=== PATIENT | male | born 1945 | race Caucasian/White ===

== ENCOUNTER → 2018-08-04 10:00 | Outpatient (CLI) | payer MEDICARE, SELFPAY ==
--- NOTE | 2018-08-04 10:08 | EKG12_ITS ---
Test Reason : PRE OP Blood Pressure : / mmHG Vent. Rate : 053 BPM Atrial Rate : 053 BPM P-R Int : 164 ms QRS Dur : 100 ms QT Int : 448 ms P-R-T Axes : 004 029 021 degrees QTc Int : 420 ms Sinus bradycardia Inferior infarct , age undetermined T wave abnormality, consider lateral ischemia Abnormal ECG Confirmed by YAYA YAO, JOHN ([id number]), editor city PATRICIA ADKINS ([id number]) on 08/05/2018 1:50:47 PM Referred By: Jose Charlton Confirmed By:JOHN JAVIER MD
[2018-08-04 10:23] LABS: Hematocrit 44.8 % (40-54); Hemoglobin 15.4 g/dl (13.0-16.5); Mean Corp Hgb Conc 34.4 g/gl (32-36); Mean Corpuscular Hgb 31.3 pg (27.0-32.0); Mean Corpuscular Volume 91.1 fL (80-94); Mean Platelet Vol. 9.5 fl (6.2-12.0); Platelet Count 273 K/mm3 (150-450); RBC Distribution Width CV 13.1 % (11.6-14.6); RBC Distribution Width SD 43.1 fl (35.1-43.9); Red Blood Count 4.92 M/mm3 (4.6-6.2); White Blood Count 6.3 K/mm3 (4.4-11.0)
[2018-08-04 10:26] LABS: Scan Indicated on CBC? Y/N NO
[2018-08-04 11:02] VITALS: BP 128/71; PULSE 61; RESP 16; TEMP 36.5; O2SAT 96; BMI 34.6
[2018-08-04 11:12] LABS: Anion Gap 5 (5-15); BUN 13 mg/dL (7-18); BUN/Creat Ratio 11.6 RATIO (10-20); Chloride 106 mmol/L (98-107); Creatinine, Serum 1.12 mg/dL (0.70-1.30); EST Glomerular Filtration Rate 69 mL/min (>60); Est Glom Filt Rate - Afr Amer 83 mL/min (>60); Estimated Creatinine Clearance 62.46 ml/min; Glucose 204 mg/dL (74-106); Sodium Level 137 mmol/L (136-145)
[2018-08-04 11:44] LABS: Hemoglobin A1c 7.4 % (4.2-6.3)
== END ==
LOC: SDC 11:14 → PAT 09-08 15:32
PROVIDERS: Family Provider Nurse Practitioner Family; PCP Nurse Practitioner Family; Referring Provider Otolaryngology; Visit Provider Otolaryngology
DX: Z01.818 Encounter for other preprocedural examination (principal); E11.9 Type 2 diabetes mellitus without complications
CPT/HCPCS: 36415; 80048; 83036; 85027; 93005

== ENCOUNTER → 2018-12-25 13:43 | Outpatient (CLI) | payer MEDICARE, SELFPAY ==
[2018-12-15 13:26] VITALS: BMI 34.4
--- NOTE | 2018-12-25 13:45 | ECHOD_ITS ---
Reason For Study: ARRHYTHMIA Procedure This was a 2D Doppler, Color Flow transthoracic echocardiogram. The study was technically difficult. Exam performed in department. Left Ventricle Normal size and thickness. The estimated ejection fraction is 55 %. Stage 1 diastolic dysfunction. Lateral-Basal: Mildly hypokinetic. Mid-Lateral : Mildly hypokinetic. Infero-Basal: Mildly hypokinetic. Right Ventricle Normal size and thickness. Normal systolic function. Atria The left atrium is moderately enlarged. Normal right atrium. Normal atrial septum. Mitral Valve Mild diffuse mitral valve thickening. Mild (1+) posteriorly directed mitral valve insufficiency. Tricuspid Valve Normal tricuspid valve. Trivial tricuspid valve insufficiency. Right ventricular systolic pressure estimated to be 37 mmHg. Mild pulmonary hypertension. Aortic Valve Normal aortic valve. Trisinus/trileaflet aortic valve. Pulmonic Valve Normal pulmonic valve. Trivial pulmonic valve insufficiency. Great Vessels Normal aortic root. Normal arch. Normal inferior vena cava. Inferior vena cava collapse with sniff. Pericardium/Pleural No pericardial effusion. MMode/2D Measurements & Calculations LVIDd: 4.6 cm IVSd: 1.2 cm Ao root diam: 3.1 cm LVIDs: 3.2 cm LVPWd: 1.2 cm RVDd: 3.4 cm FS: 30.3 % LAV(MOD-bp): 87.4 ml LA A4 area: 25.6 cm2 LA dimension(2D): 4.0 cm LAV(MOD-bp) Indexed: 39.8 ml/m2 LAV(MOD-sp2): 85.9 ml LAV(MOD-sp4): 83.5 ml RA A4 area: 19.8 cm2 Time Measurements MV dec time: 0.24 sec Doppler Measurements & Calculations MV E max anant: 86.5 cm/sec Lat Peak E' Anant: 9.6 cm/sec Med Peak E' Anant: 5.9 cm/sec MV A max anant: 98.4 cm/sec E/E' lat: 9.1 E/E' med: 14.6 MV E/A: 0.88 Ao V2 max: 115.4 cm/sec LV V1 max: 103.0 cm/sec PA V2 max: 103.1 cm/sec Ao max P.3 mmHg LV V1 max P.2 mmHg TR max anant: 258.1 cm/sec TR max P.9 mmHg Interpretation Summary The estimated ejection fraction is 55 %. Stage 1 diastolic dysfunction. Lateral-Basal: Mildly hypokinetic Mid-Lateral : Mildly hypokinetic Infero-Basal: Mildly hypokinetic The left atrium is moderately enlarged. Mild (1+) posteriorly directed mitral valve insufficiency. Right ventricular systolic pressure estimated to be 37 mmHg. Trivial tricuspid valve insufficiency. There is no comparison study available. Ordering Physician: Ap Schaffer Referring Physician: Dakota SAFETY LEADER-C, Soila Performed By: Nery Werner, GOMEZ, RVT
== END ==
PROVIDERS: Family Provider Nurse Practitioner Family; PCP Nurse Practitioner Family; Referring Provider Internal Medicine Cardiovascular Disease; Visit Provider Internal Medicine Cardiovascular Disease
DX: I51.9 Heart disease, unspecified (principal); I49.9 Cardiac arrhythmia, unspecified
CPT/HCPCS: 93306

== ENCOUNTER → 2019-08-06 15:34 | Outpatient (CLI) | payer MEDICARE, SELFPAY ==
[2019-08-06 15:18] VITALS: BMI 34.4
[2019-08-06 16:14] LABS: Absolute Lymphocyte Count 2.27 X10^3/uL (0.83-4.51); Absolute Neutrophil Count 3.6 X10^3/uL (2.0-7.7); Basophil# 0.08 X10^3/uL; Basophil% 1.1 % (0-1); Eosinophil# 0.51 X10^3/uL; Eosinophils% 7.1 % (0-5); Hematocrit 43.4 % (40-54); Hemoglobin 14.8 g/dL (13.0-16.5); Lymphocyte # 2.27 X10^3/ul (4.0); Lymphocyte % 31.5 % (19-41); Mean Corp Hgb Conc 34.1 g/dL (32-36); Mean Corpuscular Hgb 31.6 pg (27.0-32.0); Mean Corpuscular Volume 92.7 fL (80-94); Mean Platelet Vol. 9.6 fl (6.2-12.0); Monocyte% 9.7 % (0-10); NRBC Flagged by Analyzer 0 % (0-5); Neutrophil # 3.63 X10^3/uL (2.7-7.7); Neutrophil % 50.3 % (47-70); Platelet Count 293 K/mm3 (150-450); RBC Distribution Width CV 12.7 % (11.6-14.6); RBC Distribution Width SD 42.7 fl (35.1-43.9); Red Blood Count 4.68 M/mm3 (4.6-6.2); White Blood Count 7.2 K/mm3 (4.4-11.0)
[2019-08-06 17:10] LABS: Anion Gap 6 (5-15); BUN 14 mg/dL (7-18); BUN/Creat Ratio 11.9 RATIO (10-20); Calcium,Total 9.8 mg/dL (8.5-10.1); Chloride 99 mmol/L (98-107); Creatinine, Serum 1.18 mg/dL (0.70-1.30); EST Glomerular Filtration Rate 64 mL/min (>60); Est Glom Filt Rate - Afr Amer 78 mL/min (>60); Glucose 258 mg/dL (74-106); Magnesium 1.9 mg/dL (1.6-2.6); Potassium 4.2 mmol/L (3.5-5.1); Sodium Level 135 mmol/L (136-145)
== END ==
PROVIDERS: PCP Internal Medicine Infectious Disease; Referring Provider Physician Assistant Medical; Visit Provider Physician Assistant Medical
DX: I25.10 Atherosclerotic heart disease of native coronary artery without angina pectoris (principal); I49.3 Ventricular premature depolarization; E78.5 Hyperlipidemia, unspecified; I10 Essential (primary) hypertension
CPT/HCPCS: 36415; 80048; 83735; 84443; 85025

== ENCOUNTER → 2020-04-04 15:10 | Outpatient (CLI) | payer MEDICARE, SELFPAY ==
[2020-04-04 14:30] VITALS: BMI 33.0
[2020-04-04 15:55] LABS: Absolute Lymphocyte Count 2.09 X10^3/uL (0.83-4.51); Absolute Neutrophil Count 3.4 X10^3/uL (2.0-7.7); Basophil% 1.5 % (0-1); Eosinophil# 0.43 X10^3/uL; Eosinophils% 6.4 % (0-5); Hematocrit 43.9 % (40-54); Lymphocyte # 2.09 X10^3/ul (4.0); Lymphocyte % 31.1 % (19-41); Mean Corp Hgb Conc 34.2 g/dL (32-36); Mean Corpuscular Hgb 30.7 pg (27.0-32.0); Mean Corpuscular Volume 89.8 fL (80-94); Mean Platelet Vol. 9.5 fl (6.2-12.0); Monocyte# 0.67 X10^3/uL; NRBC Flagged by Analyzer 0 % (0-5); Neutrophil # 3.42 X10^3/uL (2.7-7.7); Neutrophil % 50.7 % (47-70); Platelet Count 318 K/mm3 (150-450); RBC Distribution Width CV 12.5 % (11.6-14.6); RBC Distribution Width SD 41.1 fl (35.1-43.9); Red Blood Count 4.89 M/mm3 (4.6-6.2); White Blood Count 6.7 K/mm3 (4.4-11.0)
[2020-04-04 16:57] LABS: ALB/GLOB Ratio 0.9 RATIO (0.9-2.4); AST(SGOT) 49 U/L (15-37); Alanine Aminotransfer ALT/SGPT 96 U/L (16-61); Albumin, Serum 3.8 g/dL (3.2-5.0); Alkaline Phosphatase 81 U/L (45-117); Anion Gap 8 (5-15); BUN 15 mg/dL (7-18); BUN/Creat Ratio 12.9 RATIO (10-20); Calcium,Total 9.6 mg/dL (8.5-10.1); Chloride 102 mmol/L (98-107); Cholesterol 172 mg/dL (200); Creatinine, Serum 1.16 mg/dL (0.70-1.30); EST Glomerular Filtration Rate 66 mL/min (>60); Est Glom Filt Rate - Afr Amer 79 mL/min (>60); Globulin 4.2 g/dL (2.2-4.2); Glucose 344 mg/dL (74-106); High Density Lipoprotein 27 mg/dL; Magnesium 1.7 mg/dL (1.6-2.6); Sodium Level 137 mmol/L (136-145); Thyroid Stim Hormone (TSH) 3.52 uIU/mL (0.358-3.74); Triglycerides 533 mg/dL
== END ==
PROVIDERS: PCP Internal Medicine Infectious Disease; Visit Provider Physician Assistant Medical
DX: I25.10 Atherosclerotic heart disease of native coronary artery without angina pectoris (principal); E78.5 Hyperlipidemia, unspecified; M62.838 Other muscle spasm; I51.9 Heart disease, unspecified
CPT/HCPCS: 36415; 80053; 80061; 83735; 84443; 85025

== ENCOUNTER → 2021-01-01 12:48 | Outpatient (CLI) | payer MEDICARE, SELFPAY ==
--- NOTE | 2021-01-01 12:59 | ECHOCS_ITS ---
Reason For Study: Murmur Procedure This was a 2D Doppler, Color Flow transthoracic echocardiogram. The study was technically difficult. Contrast injection was performed. Exam performed in department. Left Ventricle Normal LV size. Segmental dysfunction with preserved ejection fraction (see wall motion). The estimated ejection fraction is 55 %. Diastolic function is indeterminate. Lateral-Basal: Hypokinetic. Posterior-Basal: Hypokinetic. Infero-Basal: Hypokinetic. Basal inferoseptal: Hypokinetic. Right Ventricle Normal RV size. Normal systolic function. Atria The left atrium is mildly enlarged. Normal right atrium. No doppler evidence for ASD. Mitral Valve There is no mitral annular calcification. Normal mitral valve. Mild-Moderate (1-2+) eccentric mitral valve insufficiency. Tricuspid Valve Normal tricuspid valve. Trivial tricuspid valve insufficiency. Unable to estimate RV systolic pressure/pulmonary artery pressure due to technically difficult study. Aortic Valve The aortic valve is not well visualized. Pulmonic Valve The pulmonic valve is not well visualized. Trivial pulmonic valve insufficiency. Great Vessels Normal sized aortic root. Pericardium/Pleural No pericardial effusion. Medication Diluted definity 3ml given slow IV push to enhance endocardial definition. MMode/2D Measurements & Calculations LVIDd: 4.6 cm IVSd: 1.0 cm Ao root diam: 3.5 cm LVIDs: 3.0 cm LVPWd: 0.91 cm RVDd: 3.4 cm FS: 36.1 % LAV(MOD-bp): 82.0 ml LA A4 area: 23.1 cm2 LA dimension(2D): 4.4 cm LAV(MOD-bp) Indexed: 38.2 ml/m2 LAV(MOD-sp2): 80.5 ml LAV(MOD-sp4): 73.0 ml RA A4 area: 14.7 cm2 Doppler Measurements & Calculations MV E max anant: 74.8 cm/sec Lat Peak E' Anant: 9.3 cm/sec Med Peak E' Anant: 6.6 cm/sec MV A max anant: 85.1 cm/sec E/E' lat: 8.1 E/E' med: 11.4 MV E/A: 0.88 Ao V2 max: 126.0 cm/sec LV V1 max: 114.9 cm/sec PA V2 max: 85.7 cm/sec Ao max P.3 mmHg LV V1 max P.3 mmHg Ao V2 mean: 89.9 cm/sec Ao mean P.5 mmHg Ao V2 VTI: 23.4 cm ECHO/Echo Complete W/ Contrast Interpretation Summary The study was technically difficult. Contrast injection was performed. Segmental dysfunction with preserved ejection fraction (see wall motion). The estimated ejection fraction is 55 %. The left atrium is mildly enlarged. Mild-Moderate (1-2+) eccentric mitral valve insufficiency. Trivial tricuspid valve insufficiency. Trivial pulmonic valve insufficiency. Unable to estimate RV systolic pressure/pulmonary artery pressure due to techni brennon difficult study. Diastolic function is indeterminate. Ordering Physician: Arun Mendes Referring Physician: Marlon Byrd Performed By: Roof, Stephanie, RDCS, RVT
== END ==
PROVIDERS: PCP Internal Medicine Infectious Disease; Referring Provider Internal Medicine Cardiovascular Disease; Visit Provider Internal Medicine Cardiovascular Disease
DX: I25.10 Atherosclerotic heart disease of native coronary artery without angina pectoris (principal)
CPT/HCPCS: 93306; Q9957; A4216; C8929; J3490

== ENCOUNTER 2021-07-03 06:48 | Outpatient (CLI) | payer MEDICARE, SELFPAY ==
--- NOTE | 2021-07-03 08:49 | STRESSREP_ITS ---
Stress Test Report Date: Procedure: Exercise tolerance test/imaging study Indications: Dyspnea on exertion; CAD; PCI Consent: Per the patient Procedure: The patient exercised on a Tommy protocol for 4 minutes completing Stage I and 1 minute of Stage II achieving a peak heart rate of 126 bpm (86% predicted maximal heart rate) with a peak blood pressure 172/74 mmHg and a peak MET capacity of 7 METs. The baseline ECG demonstrated sinus bradycardia. The peak exercise ECG demonstrated somatic/motion artifact with no obvious ECG changes. There was an isolated PVC during exercise and a rare PVC during recovery. The functional capacity was considered average. There was no complaint of chest discomfort during exercise or recovery. The examination was discontinued secondary to dyspnea. Impression: 1. Technically adequate (percent predicted maximal heart rate greater than 85%) exercise tolerance test 2. Peak exercise ECG with somatic/motion artifact with no obvious ECG changes 3. There was an isolated PVC during exercise and a rare PVC during recovery 4. Nuclear images pending Myocardial perfusion imaging study: Technique: The patient was injected with 14.8 mCi of technetium 99m Cardiolite and subsequently rest SPECT Cardiolite nuclear imaging was obtained in the horizontal long, vertical long, and short axis views. The patient exercised on a Tommy protocol for 4 minutes completing Stage I and 1 minute of Stage II achieving a peak heart rate of 126 bpm (86% predicted maximal heart rate) with a peak blood pressure 172/74 mmHg and a peak MET capacity of 7 METs. The patient was injected with 45 point mCi of technetium 99m Cardiolite and subsequently stress SPECT Cardiolite nuclear imaging was obtained in the horizontal long, vertical long, and short axis views. A gated Cardiolite study at peak stress was obtained. Interpretation: Rest and stress SPECT Cardiolite nuclear imaging status post realignment, normal ization, and attenuation correction, demonstrates the appearance of diminished absence of myocardial perfusion/tracer uptake in the basal towards distal inferolateral segments at both rest and stress and following stress the appearance of diminished myocardial perfusion/tracer uptake in the inferior apical/lateral apical segments. There is diminished end-systolic thickening and brightening in the aforementioned area. The gated Cardiolite study demonstrates diminished myocardial thickening and inward wall motion in the aforementioned areas. The reported LVEF is 49%. Impression: 1. Rest and stress SPECT Cardiolite nuclear imaging demonstrate myocardial perfusion changes appearing compatible with an area of previous myocardial injury/infarction involving portions of the basal towards distal inferolateral segments with post-rest myocardial perfusion changes compatible with an area of stress-induced myocardial ischemia in the inferoapical/lateral apical segments. 2. The gated Cardiolite study reports an LVEF of 49%. This note was generated with [employer] software. It may contain incorrect words, spelling, and punctuation that were not noted in checking the note before signing.
== END 2021-07-03 23:59 | disposition home or self-care (01) ==
LOC: CVS 06:53
PROVIDERS: PCP Internal Medicine Infectious Disease; Referring Provider Nurse Practitioner Gerontology; Visit Provider Nurse Practitioner Gerontology
DX: R06.00 Dyspnea, unspecified (principal)
CPT/HCPCS: 78452; 93017; A9500; A4216

== ENCOUNTER 2021-07-24 08:39 | Day surgery (SDC) | payer MEDICARE, SELFPAY ==
--- NOTE | 2021-07-13 09:35 | RAD_ITS ---
INDICATION: Abnormal Stress Test- Cardiac Catheterization EXAMINATION/TECHNIQUE: X-RAY - XR Chest 2 Views COMPARISON: None. FINDINGS: LINES/DEVICES: None. LUNGS: Peribronchial cuffing and mild bilateral hilar prominence with no evidence of focal lung infiltrate or consolidation is seen. No evidence of pneumothorax or pleural effusion. Circumscribed ovoid soft tissue densities/calcifications visualized superimposed over the lateral aspect of the left hemidiaphragm. MEDIASTINUM AND CARDIOVASCULAR STRUCTURES: Cardiac silhouette not enlarged. BONES AND SOFT TISSUES: Unremarkable. RAD/Chest PA and Lateral IMPRESSION: No radiographic evidence of acute cardiopulmonary disease. Electronically Signed: Ayan Gould MD at 13:22 EDT ,
[2021-07-13 10:59] LABS: Absolute Lymphocyte Count 2.18 X10^3/uL (0.83-4.51); Absolute Neutrophil Count 3.6 X10^3/uL (2.0-7.7); Basophil% 1.4 % (0-1); Eosinophil# 0.43 X10^3/uL; Eosinophils% 6.1 % (0-5); Hematocrit 43.9 % (40-54); Lymphocyte # 2.18 X10^3/ul (0.83-4.51); Lymphocyte % 30.9 % (19-41); Mean Corp Hgb Conc 34.2 g/dL (32-36); Mean Corpuscular Hgb 31.1 pg (27.0-32.0); Mean Corpuscular Volume 90.9 fL (80-94); Monocyte# 0.72 X10^3/uL; Monocyte% 10.2 % (0-10); NRBC Flagged by Analyzer 0 % (0-5); Neutrophil # 3.61 X10^3/uL (2.7-7.7); Neutrophil % 51.1 % (47-70); Platelet Count 292 K/mm3 (150-450); RBC Distribution Width CV 13.2 % (11.6-14.6); RBC Distribution Width SD 44.2 fl (35.1-43.9); Red Blood Count 4.83 M/mm3 (4.6-6.2); White Blood Count 7.1 K/mm3 (4.4-11.0)
[2021-07-13 11:08] LABS: Partial Thromboplast Time 25.9 Seconds (24.1-36.2); Prothrombin Time (Protime)PT. 13.3 SECONDS (11.7-14.9)
[2021-07-13 11:34] LABS: Anion Gap 4 (5-15); BUN 15 mg/dL (7-18); Calcium,Total 9.1 mg/dL (8.5-10.1); Chloride 105 mmol/L (98-107); EST Glomerular Filtration Rate 78 mL/min (>60); Est Glom Filt Rate - Afr Amer 94 mL/min (>60); Glucose 172 mg/dL (74-106); Potassium 3.9 mmol/L (3.5-5.1); Sodium Level 137 mmol/L (136-145)
--- NOTE | 2021-07-22 09:05 | HP.PCM_ITS ---
History and Physical Date of Admission: 07/24/21 [facility] [address] [place] [address] [phone] OFFICE VISITDate of Service: 07/13/21 MR#:[id number]:[id number]: JUAN RAMON PATINO [facility] #:[id number]:1945 Provider: SAMY De La Torre RoofAge/Sex: 76/M [facility] HPI History of Present Illness Surgical H&P: Yes Details: This is a 76-year-old white male with a past cardiovascular history of underlying CAD, ND, PCI, hyperlipidemia, hypertension, diabetes mellitus, who presents for outpatient cardiovascular follow-up. He has been previously followed by my former colleague Dr. Ap Schaffer. Patient underwent stress test on 07/03/2021 that was considered to be abnormal. This showed area of stress-induced myocardial ischemia in the inferoapical/lateral apical segments and an ejection fraction of 49%. He was to on isosorbide therapy. On account of such test, he will proceed with heart catheterization to evaluate further. He denies chest, arm, jaw, or neck discomfort. He denies palpitations or bilateral lower extremity edema. He acknowledges unchanged shortness of breath with activity. He denies shortness of breath at rest, orthopnea, cough, or PND. He acknowledges occasional lightheadedness. He denies dizziness, near-syncope, or syncope. He acknowledges ongoing fatigue. Intake Vital Signs 07/13/21 09:45 Height 5 ft 10 in Weight: 245 lb BMI 35.2 BP 135/75 H Blood Pressure Location Lt brachial Position Sitting Respiration 24 H Pulse 60 Pulse Source Monitor Pulse Oximetry (%) 96 Oxygen Delivery Method room air Intake Visit Reasons: update H & P Correctional Classification Counselor Required: No Accompanied by: None Is patient in pain?: No Allergies Penicillins Allergy (Intermediate, Verified 07/13/21 09:49) Itching, rash ticagrelor [From Brilinta] Adverse Reaction (Severe, Verified 07/13/21 09:49) Shortness of breath Medications fenofibrate 160 mg PO DAILY 05/01/15 [History Confirmed 07/13/21] magnesium oxide 400 mg PO BID 05/01/15 [History Confirmed 07/13/21] multivitamin 1 ea PO DAILY 08/04/18 [History Confirmed 07/13/21] aspirin 81 mg tablet,delayed release 81 mg PO DAILY 12/14/18 [History Confirmed 07/13/21] atorvastatin 80 mg tablet 80 mg PO QHS tab 12/14/18 [History Confirmed 07/13/21] clopidogrel 75 mg tablet 75 mg PO DAILY 12/15/18 [History Confirmed 07/13/21] omega-3 fatty acids 1,000 mg capsule 1,000 mg PO DAILY 08/06/19 [History Confirmed 07/13/21] famotidine 20 mg tablet 20 mg PO DAILY tab 12/14/20 [History Confirmed 07/13/21] metoprolol succinate 25 mg tablet,extended release 24 hr 12.5 mg PO DAILY #90 tab 12/14/20 [Rx Confirmed 07/13/21] ezetimibe 10 mg tablet 10 mg PO DAILY 06/21/21 [History Confirmed 07/13/21] glimepiride 4 mg tablet 4 mg PO DAILY 06/21/21 [History Confirmed 07/13/21] apple cider vinegar 300 mg tablet 450 mg PO BID tab 07/13/21 [History Confirmed 07/13/21] cholecalciferol (vitamin D3) 25 mcg (1,000 unit) tablet 1,000 unit PO BID tab 07/13/21 [History Confirmed 07/13/21] cyanocobalamin (vitamin B-12) 1,000 mcg sublingual tablet 5,000 mcg SUBLINGUAL DAILY tab 07/13/21 [History Confirmed 07/13/21] garlic 1,000 mg capsule 1,000 mg PO BID cap 07/13/21 [History Confirmed 07/13/21] ipratropium 20 mcg-albuterol 100 mcg/actuation mist for inhalation 1 puff INHALATION ONCE PRN g 07/13/21 [History Confirmed 07/13/21] meclizine 12.5 mg tablet 12.5 mg PO BID tab 07/13/21 [History Confirmed 07/13/21] metformin 500 mg tablet 500 mg PO DAILY tab 07/13/21 [History Confirmed 07/13/21] Ejection fraction %: 55 to 59 PFSH Medical History Atherosclerosis of coronary artery of [place] heart without angina pectoris Cardiac murmur Essential hypertension Former smoker, stopped smoking in distant past GERD (gastroesophageal reflux disease) 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) Hyperlipidemia Left ventricular dysfunction Obesity Peripheral arterial occlusive disease Peripheral neuropathy Type 2 diabetes mellitus Surgical History History of angioplasty (08/15/18) Stented coronary artery Family History Father Sudden cardiac CAD (coronary artery disease) Mother CAD (coronary artery disease) Sudden cardiac Hypertension Diabetes Brother Myocardial infarction Congestive heart failure Social History Smoking Status: Former smoker how long ago did patient quit smokin years alcohol intake: current alcohol intake frequency: holidays/special occasions only substance use type: does not use caffeine: Yes Type: coffee Number of servings: 2 ROS Const Const: Positive for fatigue; Negative for weakness, headache(s), frequent falls, difficulty sleeping or excessive sweating Eyes Eyes: Negative for loss of peripheral vision, transient loss of vision, blurry vision, double vision or tunnel vision ENT ENT: Positive for balance problems; Negative for headache(s), dizziness or Nosebleed/epistaxis Cardio Chest Pain: No Palpitations: No Edema: None Muscle aches with walking: None Resp Respiratory: Positive for SOB with activity; Negative for SOB at rest, SOB orthopnea\SOB lying down, Cough or paroxysmal nocturnal dyspnea GI GI: Negative nausea, vomiting, heartburn or black,tarry stools : Negative for hematuria Musc Musc: Positive for muscle weakness (pain in legs with running), joint pain and balance problems; Negative for muscle aches/ myalgia Skin Skin: Negative non-healing lesions, rash or unusual bruising Neuro Neuro: Positive for lightheadedness (Occasionally); Negative for dizziness, near syncope, syncope, frequent falls, headache(s), weakness, blurry vision, double vision or lack of coordination Perez Hematologic/Lymphatic: Negative for easy bleeding or easy bruising Endo Endo: Positive for fatigue; Negative for excessive sweating or increased thirst/drinking Psych Psych: Negative for anxiety or depression Allergy Allergy/Immunology: Negative for hives and Negative for rash Cardiology Exam Const Appearance: cooperative, healthy appearing, comfortable and no acute distress Nutritional Appearance: well nourished and obese Orientation: alert, awake and oriented x3 Head Head: normal to inspection Ears: hearing grossly normal bilaterally Nose: external nose normal Face and Sinus: face symmetric Mouth: oral mucosae normal Eyes General: appearance normal, both eyes and all related structures Eyelids: eyelids normal EOM: EOM intact bilaterally Neck Neck: normal visual inspection and no JVD Carotids: normal carotid upstroke Chest Chest inspection: normal inspection of the chest, symmetric chest movement and normal respiratory effort; Negative cough Auscultation: Bilateral: Clear to Auscultation Cardio Rate: regular rate Rhythm: regular rhythm Heart sounds: S1 normal and S2 normal; Negative rub, gallop or murmur GI GI: normal to inspection and obese Neuro General: patient alert, patient awake, patient oriented x3 and CN's II-XI intact bilaterally Skin Skin: no rashes or lesions noted Extremities Pulses: Normal: Right Posterior Tibial Pulse, Left Posterior Tibial Pulse, Right Radial Pulse and Left Radial Pulse Lower Extremity Edema: None: Bilateral Psych Psychological: normal affect Supplemental Info Supplemental Information Echocardiogram 01/01/2021: Interpretation Summary The study was technically difficult. Contrast injection was performed. Segmental dysfunction with preserved ejection fraction (see wall motion). The estimated ejection fraction is 55 %. The left atrium is mildly enlarged. Mild-Moderate (1-2+) eccentric mitral valve insufficiency. Trivial tricuspid valve insufficiency. Trivial pulmonic valve insufficiency. Unable to estimate RV systolic pressure/pulmonary artery pressure due to technically difficult study. Diastolic function is indeterminate. Echocardiogram 12/25/2018: The estimated ejection fraction is 55 %. Stage 1 diastolic dysfunction. Lateral-Basal: Mildly hypokinetic Mid-Lateral : Mildly hypokinetic Infero-Basal: Mildly hypokinetic The left atrium is moderately enlarged. Mild (1+) posteriorly directed mitral valve insufficiency. Right ventricular systolic pressure estimated to be 37 mmHg. Trivial tricuspid valve insufficiency. There is no comparison study available. Stress Test Report Date: Procedure: Exercise tolerance test/imaging study Indications: Dyspnea on exertion; CAD; PCI Consent: Per the patient Procedure: The patient exercised on a Tommy protocol for 4 minutes completing Stage I and 1 minute of Stage II achieving a peak heart rate of 126 bpm (86% predicted maximal heart rate) with a peak blood pressure 172/74 mmHg and a peak MET capacity of 7 METs. The baseline ECG demonstrated sinus bradycardia. The peak exercise ECG demonstrated somatic/motion artifact with no obvious ECG changes. There was an isolated PVC during exercise and a rare PVC during recovery. The functional capacity was considered average. There was no complaint of chest discomfort during exercise or recovery. The examination was discontinued secondary to dyspnea. Impression: 1. Technically adequate (percent predicted maximal heart rate greater than 85%) exercise tolerance test 2. Peak exercise ECG with somatic/motion artifact with no obvious ECG changes 3. There was an isolated PVC during exercise and a rare PVC during recovery 4. Nuclear images pending Myocardial perfusion imaging study: Technique: The patient was injected with 14.8 mCi of technetium 99m Cardiolite and subsequently rest SPECT Cardiolite nuclear imaging was obtained in the horizontal long, vertical long, and short axis views. The patient exercised on a Tommy protocol for 4 minutes completing Stage I and 1 minute of Stage II achieving a peak heart rate of 126 bpm (86% predicted maximal heart rate) with a peak blood pressure 172/74 mmHg and a peak MET capacity of 7 METs. The patient was injected with 45 point mCi of technetium 99m Cardiolite and subsequently stress SPECT Cardiolite nuclear imaging was obtained in the horizontal long, vertical long, and short axis views. A gated Cardiolite study at peak stress was obtained. Interpretation: Rest and stress SPECT Cardiolite nuclear imaging status post realignment, nor malization, and attenuation correction, demonstrates the appearance of diminished absence of myocardial perfusion/tracer uptake in the basal towards distal inferolateral segments at both rest and stress and following stress the appearance of diminished myocardial perfusion/tracer uptake in the inferior apical/lateral apical segments. There is diminished end-systolic thickening and brightening in the aforementioned area. The gated Cardiolite study demonstrates diminished myocardial thickening and inward wall motion in the aforementioned areas. The reported LVEF is 49%. Impression: 1. Rest and stress SPECT Cardiolite nuclear imaging demonstrate myocardial perfusion changes appearing compatible with an area of previous myocardial injury/infarction involving portions of the basal towards distal inferolateral segments with post-rest myocardial perfusion changes compatible with an area of stress-induced myocardial ischemia in the inferoapical/lateral apical segments. 2. The gated Cardiolite study reports an LVEF of 49%. Labs: LDL Cholesterol TNP HDL Cholesterol 27 mg/dL (40-) L Triglycerides 533 mg/dL (-199) H VLDL Cholesterol TNP Diagnostics: Electrocardiogram Echocardiogram Stress Test NM Stress Test Chest X-Ray Pulmonary: No Data to Display Assessment and Plan Assessment and Plan (1) VALLE (dyspnea on exertion): Status: Acute Plan - Facundo Odonnell STUDENT SERVICES COORDINATOR, STUDENT SERVICES COORDINATOR-C: On account of such shortness of breath, proceed with stress test. This was considered to be abnormal. He will proceed with heart catheterization to assess CAD component. Based on results of heart catheterization, further recommendation will be made. He does not acknowledge any significant improvement in shortness of breath with isosorbide therapy. (2) Essential hypertension: Status: Chronic Plan - Facundo Odonnell STUDENT SERVICES COORDINATOR, STUDENT SERVICES COORDINATOR-C: We will continue to follow adjustment patient has indicated. (3) Atherosclerosis of coronary artery of [place] heart without angina pectoris: Status: Chronic Qualifiers: Coronary Disease-Associated Artery/Lesion type: [place] artery Qualified Code(s): I25.10 - Atherosclerotic heart disease of [place] coronary artery without angina pectoris Comment: 07/13/03: A3.5 X 18 mm Cypher KULDIP to RCA per Dr. Rodrigue Araya, [facility]. 01/06/2007: Acute inferior ND: 3rd degree AV block requiring atropine and dopamine. Significant stenosis of RCA. Difficulty advancing balloon catheters and procedure terminated d/t pt becoming hypotensive and vomiting. 03/04/07 Stent inserted into mid RCA: 3.5 X [address] Rodrigue Araya [facility]. Left heart cath per Dr. Jv Arreola @ [facility], No angioplasty required. Left main: normal. LAD 40-50% narrowing of proximal LAD. CX: 40% narrowing proximally. RCA: all stents patient. 50-60% narrowing distal to proximal stent and suggestion of some ulceration, but lumen still large at approx 2.5 to 3 mm. FFR done: 0.89, not significant. 09/11/2011 Plan - Facundo Odonnell STUDENT SERVICES COORDINATOR, STUDENT SERVICES COORDINATOR-C: Heart catheterization on 08/15/2018 at [facility] showed ejection fraction 45-50%, Left main with minor luminal irregularities, LAD with mild diffuse di sease, left circumflex ostial lesion at 50% stenosis, right coronary with 100% ostial lesion stenosis. Angioplasty was performed that did not improve stenosis. He does not have limited collateral flow from LAD to distal RCA. This will be reevaluated with heart catheterization. Based on on results, further recommendation will be made. (4) Stented coronary artery: Status: Chronic Comment: 07/13/03: A3.5 X 18 mm Cypher KULDIP to RCA per Dr. Rodrigue Araya, [facility]. 01/06/2007: Acute inferior ND: 3rd degree AV block requiring atropine and dopamine. Significant stenosis of RCA. Difficulty advancing balloon catheters and procedure terminated d/t pt becoming hypotensive and vomiting. 03/04/07 Stent inserted into mid RCA: 3.5 X [address] Rodrigue Araya [facility]. Left heart cath per Dr. Jv Arreola @ [facility], No angioplasty required. Left main: normal. LAD 40-50% narrowing of proximal LAD. CX: 40% narrowing proximally. RCA: all stents patient. 50-60% narrowing distal to proximal stent and suggestion of some ulceration, but lumen still large at approx 2.5 to 3 mm. FFR done: 0.89, not significant, procedure done 09/11/2011. Plan - Facundo Odonnell STUDENT SERVICES COORDINATOR, STUDENT SERVICES COORDINATOR-C: He will continue current medical therapy with aspirin 81 mg p.o. daily, Plavix 75 mg p.o. daily, atorvastatin 80 mg p.o. nightly, Zetia 10 mg p.o. daily, fenofibrate 160 mg p.o. daily, and metoprolol succinate 12.5 mg p.o. daily. (5) Hyperlipidemia: Status: Chronic Plan - Facundo Odonnell STUDENT SERVICES COORDINATOR, STUDENT SERVICES COORDINATOR-C: This is being monitored by primary care physician. He will continue current medical therapy and continue risk factor and lifestyle modification. (6) Mitral valve insufficiency: Status: Acute Plan - Facundo Odonnell STUDENT SERVICES COORDINATOR, STUDENT SERVICES COORDINATOR-C: His echocardiogram on 01/01/2021 showed ejection fraction of 55% and mild to moderate mitral valve insufficiency. He will continue current medical therapy and we will continue to monitor through history, exam, and repeat echocardiogram as needed. Plan Details Additional Comments: Thank you for allowing me to participate in the care of your patient. Please don't hesitate to call if any issues arise. This note was generated using a voice recognition system and there may be incorrect words, spelling, or punctuation that were not noted when reviewing the office note prior to saving. Follow Up: Keep as is (KRR & PFM) COVID (Procedure Consent) Procedure Criteria Procedure Criteria: Yes Elective The surgeon/proceduralist and patient have discussed in detail the risk of exposure to and/or potential harm posed by the COVID-19 virus with having a surgery/procedure at this time versus the risk of delaying the surgery/procedure. It is not possible to know either the risk of delaying the surgery or procedure or chance of getting an infection with perfect accuracy, but a joint decision was made between the patient and the surgeon/proceduralist to proceed at this time with the scheduled surgery/procedure as indicated on the consent form. Coding Level of Care Code Off vis,est,level 3 Diagnoses VALLE (dyspnea on exertion) R06.00 Essential hypertension I10 Atherosclerosis of coronary artery of [place] heart without angina pectoris I25.10 Coronary Disease-Associated Artery/Lesion type: [place] artery Stented coronary artery Z95.5 Hyperlipidemia E78.5 Mitral valve insufficiency I34.0 Coding Level of Care Code Off vis,est,level 3 Diagnoses VALLE (dyspnea on exertion) R06.00 Essential hypertension I10 Atherosclerosis of coronary artery of [place] heart without angina pectoris I25.10 Coronary Disease-Associated Artery/Lesion type: [place] artery Stented coronary artery Z95.5 Hyperlipidemia E78.5 Mitral valve insufficiency I34.0 07/13/21 1151<Electronically signed by Facundo Odonnell NP, NP-C>Date Facundo Odonnell NP STUDENT SERVICES COORDINATOR-C Cosigner Signature:Date (if applicable) CC: Dr. Marlon Byrd MD ~ Assessment & Plan Addt'l Comments Addendum: Update: Secondary to an unforeseen change in my schedule precluding me from performing the patients scheduled outpatient diagnostic cardiac catheterization procedure, Dr. Armijo was asked and agreed to substitute for me and perform the patients outpatient cardiac catheterization procedure so that the patient would not have to reschedule the procedure. Thus, the patient was subsequently evaluated by and cared for by Dr. Armijo.
[2021-07-23 09:11] VITALS: BMI 35.2
--- NOTE | 2021-07-24 18:23 | CL.D_ITS ---
Patient Name: JUAN RAMON PATINO Study Date: 07/24/2021 Performing: Jude Armijo MD Ht: 70.08 inches 178 cm : 1945 Wt: 244.71 lbs 111 kg Age: 76 Gender: male BSA: 2.28 PROCEDURE(S) PERFORMED DC01-(22211)LHC/COR/LV CLINICAL PROFILE AND INDICATIONS Indications: Suspected CAD Heart Failure: None Stress/Imaging Date: 06/26/21Stress Test with SPECT MPI: Positive Intermediate Risk CAD Presentations: No Sxs, no angina. CONCLUSIONS 40% ostial left main with mild left anterior descending artery, totally occluded right coronary arter y and moderate circumflex artery. Not significantly changed from previous cardiac catheterization. RECOMMENDATIONS Medical therapy DESCRIPTION OF PROCEDURE The patient arrived to the procedure lab. The risks and benefits of the procedure as well as a full d escription of our services here and current unavailability of surgical backup were fully explained to the patient and/or their significant other prior to the catheterization. The Timeout was completed, verifying the correct patient and procedure. The patient's procedural site was prepped and draped in the usual fashion. Local anesthetic was given subcutaneously to right radial region with Lidocaine 2% . Using a modified Seldinger technique, arterial access was obtained via the right radial artery, a 6 Fr sheath was inserted. Right Coronary Artery selective angiography was then performed in multiple v iews using a 5 Fr. 4.0 Bapchule catheter. The RCA is a total occlusion.. Left Coronary Artery selective angiography was performed in multiple views using a 5 Fr. 4.0 Bapchule catheter. Left Ventriculography w as performed in QUIROS projection using a 5 Fr. Pigtail catheter. LV to AO pullback pressures were then recorded.The arterial sheath was pulled and a TR Band was applied for hemostasis CORONARY ANGIOGRAPHY DOMINANCE: Right Dominant LEFT HEART ASSESSMENT Left Ventricular Ejection Fraction: by LV Gram 45 % Inferior Basal Hypokinesis - Severe Depressed Left Ventricular systolic function LEFT MAIN: Ostial 40% LEFT ANTERIOR DESCENDING ARTERY: Left anterior descending artery is moderately calcified. There is a 30% mid LAD lesion with a vessel continuing to the apex of the ventricle. CIRCUMFLEX ARTERY: Nondominant vessel with first obtuse marginal branch with mild to moderate stenosi s in the vessel continuing with [id number] collaterals RIGHT CORONARY ARTERY: Previously stented vessel which is totally occluded at the ostium COLLATERAL FLOW: Collateral flow from Left to Right COMPLICATIONS No Complications PROCEDURE MEDICATIONS Versed 1 mg IV Fentanyl 50 mcg IV Versed 1 mg IV Oxygen: 2 L/min via nasal cannula Heparin given IA 07/24/2021 09:58:34 Verapamil 2.5mg, Ntg 100mcgs, 3000 units of Heparin given IA 07/24/2021 09:58:34 SUMMARY OF HEMODYNAMIC DATA Time AIR REST ECG 08:58:28 AO 137/80 (101) SA 09:58:26 LV 140/23, 32 10:14:36 LV 133/25, 33 10:14:45 LV 140/27, 34 10:15:30 LV 139/27, 34 10:15:39 LVp 138/30, 37 10:15:50 AOp 141/79 (104) 10:15:57 Signed By Jude Armijo MD On 07/25/2021 12:19:22 Signed By Jude Armijo MD On 07/24/2021 18:22:08 Jude Armijo MD
== END 2021-07-24 12:00 | disposition home or self-care (01) ==
LOC: CLSP 08:42
PROVIDERS: Nurse Practitioner Gerontology; PCP Internal Medicine Infectious Disease; Referring Provider Internal Medicine Cardiovascular Disease; Visit Provider Internal Medicine Cardiovascular Disease
DX: I25.10 Atherosclerotic heart disease of native coronary artery without angina pectoris (principal); E11.9 Type 2 diabetes mellitus without complications; E78.5 Hyperlipidemia, unspecified; I34.0 Nonrheumatic mitral (valve) insufficiency; I10 Essential (primary) hypertension; I25.2 Old myocardial infarction; R06.02 Shortness of breath; Z79.82 Long term (current) use of aspirin; Z79.899 Other long term (current) drug therapy; Z95.5 Presence of coronary angioplasty implant and graft; Z79.84 Long term (current) use of oral hypoglycemic drugs; Z87.891 Personal history of nicotine dependence
CPT/HCPCS: 36415; 71046; 80048; 85025; 85610; 85730; 93458; 99152; 99153; J7040; Q9967; C1769; C1894

== ENCOUNTER → 2021-10-18 | Outpatient (CLI) | payer MEDICARE, SELFPAY ==
--- NOTE | 2021-10-18 16:00 | RAD_ITS ---
STUDY: X-RAY CHEST REASON FOR EXAM: Male, 76 years old. SOB, Cough TECHNIQUE: PA and lateral. COMPARISON: 07/13/2021 FINDINGS: LUNGS: No consolidation. No pneumothorax. MEDIASTINUM: There are atherosclerotic. CARDIAC SILHOUETTE: Not enlarged. BONES AND SOFT TISSUES: Mild degenerative changes of the dorsal spine. RAD/Chest PA and Lateral IMPRESSION: No evidence of active intrathoracic disease. Electronically Signed: Rosario Mccloud MD at 7:29 EDT ,
[2021-10-18 16:59] LABS: Absolute Lymphocyte Count 2.72 X10^3/uL (0.83-4.51); Absolute Neutrophil Count 3.8 X10^3/uL (2.0-7.7); Basophil# 0.11 X10^3/uL; Basophil% 1.4 % (0-1); Eosinophil# 0.39 X10^3/uL; Eosinophils% 4.9 % (0-5); Hematocrit 43.3 % (40-54); Hemoglobin 14.7 g/dL (13.0-16.5); Lymphocyte # 2.72 X10^3/ul (0.83-4.51); Lymphocyte % 34.3 % (19-41); Mean Corp Hgb Conc 33.9 g/dL (32-36); Mean Corpuscular Hgb 31.3 pg (27.0-32.0); Mean Corpuscular Volume 92.1 fL (80-94); Mean Platelet Vol. 9.2 fl (6.2-12.0); Monocyte# 0.86 X10^3/uL; Monocyte% 10.8 % (0-10); NRBC Flagged by Analyzer 0 % (0-5); Neutrophil # 3.82 X10^3/uL (2.7-7.7); Neutrophil % 48.2 % (47-70); Platelet Count 285 K/mm3 (150-450); RBC Distribution Width CV 12.9 % (11.6-14.6); RBC Distribution Width SD 43.3 fl (35.1-43.9); White Blood Count 7.9 K/mm3 (4.4-11.0)
[2021-10-18 17:33] LABS: BNP,B-Type NATRIURETIC PEPTIDE 58.3 pg/mL (0-100)
[2021-10-18 18:15] LABS: Anion Gap 5 (5-15); BUN 16 mg/dL (7-18); BUN/Creat Ratio 15.5 RATIO (10-20); Calcium,Total 9.8 mg/dL (8.5-10.1); Chloride 103 mmol/L (98-107); Creatinine, Serum 1.03 mg/dL (0.70-1.30); EST Glomerular Filtration Rate 75 mL/min (>60); Est Glom Filt Rate - Afr Amer 91 mL/min (>60); Glucose 147 mg/dL (74-106); Sodium Level 137 mmol/L (136-145)
== END | disposition home or self-care (01) ==
LOC: RAD 15:58
PROVIDERS: PCP Internal Medicine Infectious Disease; Referring Provider Nurse Practitioner Gerontology; Visit Provider Nurse Practitioner Gerontology
DX: R06.00 Dyspnea, unspecified (principal); R06.02 Shortness of breath; R05.9 Cough, unspecified
CPT/HCPCS: 36415; 71046; 80048; 83880; 85025

== ENCOUNTER → 2021-11-02 | Outpatient (CLI) | payer MEDICARE, SELFPAY ==
--- NOTE | 2021-11-04 09:00 | PFT ---
INTRODUCTION: The patient is a 76-year-old male that presents for pulmonary function studies secondary to a diagnosis of dyspnea. Respiratory therapy reported good patient effort. Bronchodilators were used during testing. INTERPRETATION: Forced expiration spirometry demonstrates the presence of a mild large airways obstructive ventilatory defect. There was a significant response to aerosolized bronchodilators noted. Spirograms are of good quality but do not plateau indicating slow emptying of the lungs. Body plethysmography was performed and reveals lung volumes to be within normal limits. Diffusing capacity by single breath CO is also within normal limits. IMPRESSION: Partially reversible mild large airways obstructive ventilatory defect with preserved lung volumes and diffusing capacity.
== END | disposition home or self-care (01) ==
LOC: PSN 12:47
PROVIDERS: PCP Internal Medicine Infectious Disease; Referring Provider Nurse Practitioner Gerontology; Visit Provider Nurse Practitioner Gerontology
DX: R06.00 Dyspnea, unspecified (principal)
CPT/HCPCS: 94060; 94726; 94729

== ENCOUNTER → 2023-10-28 | Outpatient (CLI) | payer MEDICARE, SELFPAY ==
--- NOTE | 2023-10-28 13:31 | ECHOCS_ITS ---
Reason For Study: Murmur, MR, VALLE Procedure This was a 2D Doppler, Color Flow transthoracic echocardiogram. Contrast injection was performed. Exam performed in department. Left Ventricle Normal LV size. The left ventricular ejection fraction is 40 %. Infero-Basal: Hypokinetic. Posterior-Basal: Hypokinetic. There are regional wall motion abnormalities as specified. The rest of the wall segments are normal. Right Ventricle Normal RV size. Normal systolic function. Atria Normal left atrium. Normal right atrium. Mitral Valve There is mild mitral annular calcification. Mild papillary muscle dysfunction of the mitral valve. Mild (1+) eccentric mitral valve insufficiency. Tricuspid Valve Normal tricuspid valve. Mild (1+) tricuspid valve insufficiency. Pulmonary artery systolic pressure is 28 mmHg. Aortic Valve Normal aortic valve. Pulmonic Valve Normal pulmonic valve. Great Vessels Normal aortic root. The pulmonary artery is normal size. Normal inferior vena cava. Pericardium/Pleural No pericardial effusion. Medication Diluted definity 1.5ml given slow IV push to enhance endocardial definition. MMode/2D Measurements & Calculations LVIDd: 4.9 cm IVSd: 1.2 cm Ao root diam: 3.6 cm LVIDs: 3.7 cm LVPWd: 0.97 cm RVDd: 4.3 cm FS: 25.3 % LAV(MOD-bp): 62.4 ml LVAd ap4: 37.7 cm2 LVAd ap2: 39.3 cm2 LAV(MOD-bp) Indexed: 28.0 ml/m2 LVLd ap4: 8.2 cm LVLd ap2: 8.4 cm LAV(MOD-sp2): 71.2 ml EDV(MOD-sp4): 141.2 ml EDV(MOD-sp2): 152.7 ml LAV(MOD-sp4): 49.1 ml EDV(sp4-el): 147.7 ml EDV(sp2-el): 156.0 ml LVAs ap4: 26.8 cm2 LVAs ap2: 24.3 cm2 LVLs ap4: 7.0 cm LVLs ap2: 6.8 cm ESV(MOD-sp4): 87.1 ml ESV(MOD-sp2): 72.9 ml ESV(sp4-el): 87.6 ml ESV(sp2-el): 73.8 ml EF(MOD-sp4): 38.3 % EF(MOD-sp2): 52.3 % EF(sp4-el): 40.6 % SV(MOD-sp4): 54.0 ml SV(MOD-sp2): 79.8 ml SV(sp4-el): 60.0 ml LA A4 area: 20.4 cm2 LA dimension(2D): 3.5 cm RA A4 area: 14.7 cm2 TAPSE: 2.9 cm Time Measurements MV dec time: 0.24 sec Doppler Measurements & Calculations MV E max anant: 89.2 cm/sec Lat Peak E' Anant: 9.9 cm/sec Med Peak E' Anant: 5.2 cm/sec MV A max anant: 95.6 cm/sec E/E' lat: 9.0 E/E' med: 17.0 MV E/A: 0.93 MV V2 max: 94.3 cm/sec Ao V2 max: 110.1 cm/sec MV max P.6 mmHg MV dec slope: 384.1 cm/sec2 Ao max P.9 mmHg MV V2 mean: 54.8 cm/sec Ao V2 mean: 76.8 cm/sec MV mean P.5 mmHg Ao mean P.7 mmHg MV V2 VTI: 41.8 cm Ao V2 VTI: 29.1 cm AV (velocity ratio): 0.84 LV V1 max: 95.4 cm/sec PA V2 max: 76.2 cm/sec PI end-d anant: 79.0 cm/sec LV V1 max P.6 mmHg LV V1 mean P.1 mmHg LV V1 mean: 67.6 cm/sec LV V1 VTI: 24.3 cm TR max anant: 245.5 cm/sec TR max P.1 mmHg ECHO/Echo Complete W/ Contrast Interpretation Summary The left ventricular ejection fraction is 40 %. Normal LV size. Mild (1+) eccentric mitral valve insufficiency. Mild papillary muscle dysfunction of the mitral valve. Contrast injection was performed. Ordering Physician: Kolby Galicia Referring Physician: Marlon Byrd Performed By: Stephanie Odonnell, GOMEZ, RVT
== END | disposition home or self-care (01) ==
LOC: CVS 13:26
PROVIDERS: PCP Internal Medicine Infectious Disease; Referring Provider Internal Medicine Cardiovascular Disease; Visit Provider Internal Medicine Cardiovascular Disease
DX: Z48.812 Encounter for surgical aftercare following surgery on the circulatory system (principal); I65.21 Occlusion and stenosis of right carotid artery; Z98.890 Other specified postprocedural states
CPT/HCPCS: 93306; Q9957; A4216; C8929

== ENCOUNTER → 2023-10-30 | Outpatient (CLI) | payer MEDICARE, SELFPAY ==
--- NOTE | 2023-10-30 14:35 | RAD_ITS ---
STUDY: X-RAY - LEFT SHOULDER REASON FOR EXAM: Male, 78 years old. L SHOULDER PAIN TECHNIQUE: 4 views of the left shoulder. COMPARISON: None. FINDINGS: There is mild glenohumeral arthrosis. 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 Normal acromion. Normal humeral head and visualized proximal humerus. The soft tissue structures are unremarkable. There is no demonstrated fracture. Normal visualized pulmonary apex. 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 Electronically Signed: Anil Bassett MD at 16:07 EDT ,
== END | disposition home or self-care (01) ==
LOC: RAD 14:27
PROVIDERS: PCP Internal Medicine Infectious Disease; Referring Provider Anesthesiology; Visit Provider Anesthesiology
DX: M25.512 Pain in left shoulder (principal)
CPT/HCPCS: 73030

== ENCOUNTER → 2024-05-27 | Outpatient (CLI) | payer MEDICARE, SELFPAY ==
--- NOTE | 2024-05-27 12:42 | ECHOCS_ITS ---
Reason For Study Reason For Study: MURMUR Procedure This was a 2D Doppler, Color Flow transthoracic echocardiogram. The study was technically difficult. Due to body habitus. Contrast injection was performed. Exam performed in department. Left Ventricle Mild concentric left ventricular hypertrophy. Normal LV size. Borderline LV systolic function. Estimated LVEF 45 to 50%. Stage I diastolic dysfunction. Right Ventricle Normal right ventricle. Atria The left and right atria are normal. Mitral Valve Moderate mitral valve regurgitation. Tricuspid Valve Trivial tricuspid valve insufficiency. Normal pulmonary artery pressure. Aortic Valve Trisinus/trileaflet aortic valve. Pulmonic Valve The pulmonic valve is not well visualized. Great Vessels Normal sized aortic root. Pericardium/Pleural No pericardial effusion. Medication 22 gauge I.V. with prn adaptor inserted into right arm. Diluted definity 1.5ml given slow IV push to enhance endocardial definition. MMode/2D Measurements & Calculations LVIDd: 5.1 cm IVSd: 1.2 cm Ao root diam: 3.7 cm LVIDs: 3.5 cm LVPWd: 1.0 cm FS: 30.5 % LAV(MOD-bp): 72.1 ml LVAd ap4: 41.3 cm2 LVAd ap2: 38.2 cm2 LAV(MOD-bp) Indexed: 32.5 ml/m2 LVLd ap4: 8.8 cm LVLd ap2: 9.6 cm LAV(MOD-sp2): 65.8 ml EDV(MOD-sp4): 159.0 ml EDV(MOD-sp2): 126.3 ml LAV(MOD-sp4): 73.2 ml EDV(sp4-el): 163.8 ml EDV(sp2-el): 129.4 ml LVAs ap4: 27.9 cm2 LVAs ap2: 28.5 cm2 LVLs ap4: 7.4 cm LVLs ap2: 8.9 cm ESV(MOD-sp4): 85.1 ml ESV(MOD-sp2): 74.9 ml ESV(sp4-el): 88.7 ml ESV(sp2-el): 77.5 ml EF(MOD-sp4): 46.5 % EF(MOD-sp2): 40.7 % EF(sp4-el): 45.9 % SV(MOD-sp4): 74.0 ml SV(MOD-sp2): 51.4 ml SV(sp4-el): 75.1 ml SI(MOD-sp4): 33.3 ml/m2 SI(MOD-sp2): 23.2 ml/m2 LA A4 area: 22.7 cm2 LA dimension(2D): 4.6 cm TAPSE: 2.1 cm Time Measurements MV dec time: 0.30 sec Doppler Measurements & Calculations MV E max anant: 54.0 cm/sec Lat Peak E' Anant: 7.6 cm/sec Med Peak E' Anant: 5.6 cm/sec MV A max anant: 97.6 cm/sec E/E' lat: 7.1 E/E' med: 9.7 MV E/A: 0.55 MV V2 max: 108.5 cm/sec MV P1/2t max anant: 57.0 cm/sec Ao V2 max: 112.8 cm/sec MV max P.7 mmHg MV P1/2t: 91.9 msec Ao max P.1 mmHg MV V2 mean: 61.0 cm/sec MV dec slope: 181.6 cm/sec2 Ao V2 mean: 81.4 cm/sec MV mean P.7 mmHg MVA(P1/2t): 2.4 cm2 Ao mean P.8 mmHg MV V2 VTI: 30.9 cm Ao V2 VTI: 23.9 cm AV (velocity ratio): 0.80 LV V1 max: 88.6 cm/sec PA V2 max: 87.5 cm/sec PI end-d anant: 127.9 cm/sec LV V1 max P.1 mmHg LV V1 mean P.7 mmHg LV V1 mean: 62.4 cm/sec LV V1 VTI: 19.2 cm TR max anant: 247.8 cm/sec TR max P.6 mmHg ECHO/Echo Complete W/ Contrast Interpretation Summary Mild concentric left ventricular hypertrophy. Borderline LV systolic function. Estimated LVEF 45 to 50%. Stage I diastolic dy sfunction. Moderate mitral valve regurgitation. The study was technically difficult. Ordering Physician: Kolby Galicia Referring Physician: Marlon Byrd Performed By: Nery Werner, RDCS, RVT
== END | disposition home or self-care (01) ==
LOC: CVS 12:38
PROVIDERS: PCP Internal Medicine Infectious Disease; Referring Provider Internal Medicine Cardiovascular Disease; Visit Provider Internal Medicine Cardiovascular Disease
DX: R01.1 Cardiac murmur, unspecified (principal)
CPT/HCPCS: 93306; Q9957; A4216; C8929